=== PATIENT | male | born 1985 | race American Indian/Alaskan Native ===

== ENCOUNTER 2018-10-25 18:40 | Emergency (ER) | payer OTHER ==
--- NOTE | 2018-10-25 22:32 | Emergency Department Report ---
ED Eye Problem HPI - General Chief complaint: Eye Problems Stated complaint: LFT EYE LID IRRITATED/PAIN Time Seen by Provider: 10/25/18 22:26 Source: patient Mode of arrival: Ambulatory Limitations: No Limitations - History of Present Illness Initial comments: Patient is a 33 years old male with no significant past medical history. Patient has stated that 7 days ago he felt a swelling in his upper eyelid associated with mild redness. Patient denied any difficulty moving his eyes. He also denies any fever or chills. No visual problem. MD chief complaint: other - Related Data Allergies Allergy/AdvReac Type Severity Reaction Status Date / Time No Known Allergies Allergy Unverified 10/25/18 18:43 ED Review of Systems ROS: Stated complaint: LFT EYE LID IRRITATED/PAIN Other details as noted in HPI Comment: All other systems reviewed and negative Constitutional: denies: chills, fever Eyes: eye pain. denies: eye discharge, vision change Respiratory: denies: cough, shortness of breath, SOB with exertion Gastrointestinal: denies: abdominal pain, nausea ED Past Medical Hx - Past Medical History Previous Medical History?: No - Surgical History Past Surgical History?: Yes Additional Surgical History: right lung, Righ lung two lobes removed 2004 - Social History Smoking Status: Current Every Day Smoker ED Physical Exam - General Limitations: No Limitations General appearance: alert, in no apparent distress - Head Head exam: Present: atraumatic, normocephalic, normal inspection - Eye Eye exam: Present: PERRL, EOMI, periorbital swelling, periorbital tenderness - ENT ENT exam: Present: normal exam, normal orophraynx, mucous membranes moist - Neck Neck exam: Present: normal inspection - Respiratory Respiratory exam: Present: normal lung sounds bilaterally Critical care attestation.: If time is entered above; I have spent that time in minutes in the direct care of this critically ill patient, excluding procedure time. ED Disposition Clinical Impression: Periorbital cellulitis of left eye Disposition: DC-01 TO HOME OR SELFCARE Is pt being admited?: No Condition: Stable Instructions: Cellulitis (ED) Referrals: [facility] [Provider Group] - 3-5 Days
== END 2018-10-25 23:17 | disposition home or self-care (01) ==
LOC: ED 18:40
DX: L03.213 Periorbital cellulitis (principal); F17.200 Nicotine dependence, unspecified, uncomplicated
CPT/HCPCS: 99282

== ENCOUNTER 2019-09-12 16:25 | Emergency (ER) | payer OTHER ==
[2019-09-12 17:06] LABS: Basophils % (Auto) 0.7 % (0.0-1.8); Eosinophils # (Auto) 0.1 K/mm3 (0.0-0.4); Lymphocytes # (Auto) 1.9 K/mm3 (1.2-5.4); Lymphocytes % (Auto) 48.4 % (13.4-35.0); Monocytes # (Auto) 0.4 K/mm3 (0.0-0.8); Monocytes % (Auto) 10.6 % (0.0-7.3)
[2019-09-12 17:09] LABS: Hematocrit 44.8 % (35.5-45.6); Hemoglobin 14.9 gm/dl (11.8-15.2); Mean Corpuscular HGB Conc 33 % (32-34); Mean Corpuscular Volume 90 fl (84-94); Platelet Count 210 K/mm3 (140-440); Red Blood Count 4.96 M/mm3 (3.65-5.03); Red Cell Distribution Width 14.9 % (13.2-15.2)
[2019-09-12 17:19] LABS: BUN/Creatinine Ratio 15; Blood Urea Nitrogen 17 mg/dL (9-20); Hemolysis Index 40
[2019-09-12] MEDS ORDERED: ASPIRIN 325 MG TAB PO ONE (18:04)
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
[2019-09-12 22:02] VITALS: BP 162/72
== END 2019-09-12 22:01 | disposition home or self-care (01) ==
LOC: ED 16:25
DX: R07.89 Other chest pain (principal); R19.7 Diarrhea, unspecified
CPT/HCPCS: 36415; 71046; 80048; 80320; 84436; 84443; 84484; 85025; 93005; G0480

== ENCOUNTER 2021-08-29 09:31 | Emergency (ER) | payer OTHER ==
--- NOTE | 2021-08-29 11:09 | Ultrasound Report ---
ULTRASOUND SCROTUM INDICATION / CLINICAL INFORMATION: rt testicular pain. COMPARISON: None available. FINDINGS -- RIGHT TESTIS: Size = 4.7 x 1.8 x 3.3 cm. - Appearance: No significant abnormality. - Cyst or Mass: None. - Color Doppler Flow: No significant abnormality. EPIDIDYMIS: No significant abnormality. HYDROCELE: Mild VARICOCELE: None demonstrated. FINDINGS -- LEFT TESTIS: Size = 4.1 x 2.2 x 3.0 cm. - Appearance: No significant abnormality. - Cyst or Mass: None. - Color Doppler Flow: No significant abnormality. EPIDIDYMIS: No significant abnormality. HYDROCELE: None. VARICOCELE: None demonstrated. ADDITIONAL FINDINGS: None. IMPRESSION: Nonspecific mild right hydrocele. No other significant abnormality. No evidence of torsion. Signer Name: Davis Gatica MD Signed: 08/29/2021 11:04 AM Workstation Name: [id number]
--- NOTE | 2021-08-29 11:47 | Emergency Department Report ---
HPI - General Chief Complaint: Pain General Time Seen by Provider: 08/29/21 11:03 - HPI HPI: Since 2017 the patient has been getting recurrent right testicular pain. This been nontraumatic. The patient uses boxers. He denies any recent trauma and the pain has been there for 4 hours and about a 5 out of 10 at this point. Is about a 10 out of 10 earlier but now is better. He has taken no medications for this. He has had prior ultrasounds of these testicles but he does not know what the results are and he has never been given a diagnosis. He denies nausea vomiting fever chills dysuria flank pain or any other associated symptoms. Nothing makes it better nor worse. ED Past Medical Hx - Past Medical History Previous Medical History?: No - Surgical History Additional Surgical History: right lung, Righ lung two lobes removed 2004 - Social History Smoking Status: Current Every Day Smoker - Medications Home Medications: Home Medications Medication Instructions Recorded Confirmed Last Taken Type cephALEXin [Keflex] 500 mg PO Q8HR #28 cap 10/25/18 Unknown Rx Naproxen 500 mg PO Q12H PRN #20 tablet 09/12/19 Unknown Rx Ibuprofen [Motrin] 800 mg PO Q8HR 30 Days #30 tablet 08/29/21 Unknown Rx ED Review of Systems ROS: Stated complaint: TESTICULAR PAIN Other details as noted in HPI Other: Review of Systems: Constitutional: Negative for chills, diaphoresis and fever. HENT: Negative for sore throat. Eyes: Negative for discharge and redness. Respiratory: Negative for cough, choking and shortness of breath. Cardiovascular:Negaitive for chest pain. Negative for palpitations and leg swelling. Gastrointestinal: Negative for abdominal pain, constipation, diarrhea, nausea and vomiting. Genitourinary: Negative for dysuria and hematuria. Musculoskeletal: Negative for arthralgias, back pain, myalgias and neck pain. Skin: Negative for rash and wound. Neurological: Negative for dizziness and headaches. Psychiatric/Behavioral: Negative for suicidal ideas. All other systems reviewed and are negative. Physical Exam - Physical Exam Vital Signs: Vital Signs 08/29/21 09:36 Temperature 98 F Pulse Rate 73 Respiratory 18 Rate Blood Pressure 136/71 [Right] O2 Sat by Pulse 99 Oximetry Physical Exam: Physical Exam: Constitutional: AAOX3. No acute distress. No diaphoresis. HENT: Normocephalic. Pupils equal and reactive. No throat edema or erythema. Neck: No neck rigidity or tenderness. Cardiovascular: Heart sounds: No murmur. Normal rate and regular rhythm. Pulses: Intact distal pulses. Lungs: No wheezing or rales. Chest wall: No tenderness. Abdominal: No distension. No mass/pulsatile mass. No abdominal tenderness, guarding nor rebound. Musculoskeletal: Normal range of motion. No edema, No calf TTP. Skin: Warm and dry. Neurological: Alert and oriented to person, place, and time. Psychiatric: Mood and affect normal. Normal cognition and memory. Normal judgement. Genitalia: Penis looks within normal limits. There is no inguinal adenopathy. Cremasteric reflexes present in both sides. His right testicle does not seem e nlarged and he is got minimal tenderness to palpation. There is no epididymal tenderness to palpation. There is no inguinal hernias bilaterally. ED Course Vital Signs 08/29/21 09:36 Temperature 98 F Pulse Rate 73 Respiratory 18 Rate Blood Pressure 136/71 [Right] O2 Sat by Pulse 99 Oximetry ED Medical Decision Making - Medical Decision Making The patient had an ultrasound that showed adequate flow to bilateral testicles. He did have a small hydrocele on the right side. This could be the reason why he is having the pain. I advised him to use briefs to give him better support and he will follow-up with his PCP to get a urologist. Critical Care Time: No Critical care attestation.: If time is entered above; I have spent that time in minutes in the direct care of this critically ill patient, excluding procedure time. ED Disposition Clinical Impression: Hydrocele in adult Disposition: 01 HOME / SELF CARE / HOMELESS Is pt being admited?: No Does the pt Need Aspirin: No Condition: Stable Instructions: Hydrocele, Adult Additional Instructions: You have a right hydrocele. Make sure to take the medicine we will prescribe you and return if any other issues arise. Prescriptions: Ibuprofen [Motrin] 800 mg PO Q8HR 30 Days #30 tablet Referrals: LEROY KIMBROUGH MD [Primary Care Provider] - 3-5 Days Forms: Work/School Release Form(ED) Time of Disposition: 11:45 Print Language: INDONESIAN
[2021-08-29 12:19] VITALS: BP 118/92
== END 2021-08-29 12:18 | disposition home or self-care (01) ==
LOC: ED 09:31
DX: N43.3 Hydrocele, unspecified (principal); F17.200 Nicotine dependence, unspecified, uncomplicated
CPT/HCPCS: 93975; 99283